=== PATIENT | female | born 1985 | race Caucasian/White ===

== ENCOUNTER 2017-08-28 15:26 | Emergency (ER) | payer SELFPAY ==
[~2017-08-28] VITALS: Ht 160 cm; Wt 66.8 kg
[2017-08-28] MEDS ORDERED: CLEOCIN150 MG PO (16:07)
[2017-08-28 16:15] VITALS: BP 136/72
== END 2017-08-28 16:15 | disposition home or self-care (01) | DRG 603 ==
LOC: ED 15:26
DX: L03.115 Cellulitis of right lower limb (principal); L03.116 Cellulitis of left lower limb; F17.210 Nicotine dependence, cigarettes, uncomplicated; F41.9 Anxiety disorder, unspecified

== ENCOUNTER 2017-08-29 02:25 | Emergency (ER) | payer SELFPAY ==
[~2017-08-29] VITALS: Ht 160 cm; Wt 67.0 kg
[~2017-08-29 02:25] MED LIST: CLEOCIN150 MG PO
[2017-08-29 03:18] VITALS: BP 116/60
== END 2017-08-29 03:35 | disposition home or self-care (01) | DRG 605 ==
LOC: ED 02:25
DX: S70.02XA Contusion of left hip, initial encounter (principal); L03.116 Cellulitis of left lower limb; S70.01XA Contusion of right hip, initial encounter; S90.02XA Contusion of left ankle, initial encounter; S90.01XA Contusion of right ankle, initial encounter; S50.812A Abrasion of left forearm, initial encounter; V09.20XA Pedestrian injured in traffic accident involving unspecified motor vehicles, initial encounter; Y92.414 Local residential or business street as the place of occurrence of the external cause; Y93.01 Activity, walking, marching and hiking

== ENCOUNTER 2017-09-21 09:35 | Observation (INO) | payer SELFPAY ==
[~2017-09-21] VITALS: Ht 160 cm; Wt 61.0 kg
[2017-09-21] VITALS (7 sets, daily range): BP systolic 96–115; BP diastolic 53–76
[2017-09-21 10:42] LABS: HEMOGLOBIN 11.8 g/dl (12.0-16.0); IMMATURE GRANULOCYTES 1.2 % (0.0-1.0); MEAN CELL VOLUME 95.5 fL CALC (80.0-100.0); MEAN CORPUSCULAR HGB 33.1 pG CALC (26.0-32.0); MEAN CORPUSCULAR HGB CONC 34.6 g/L CALC (32.0-36.0); NEUT# 14.35 thou/uL (2.00-7.15); RED BLOOD COUNT 3.57 mill/uL (4.20-5.60); RED CELL DISTRI WIDTH 11.9 % (11.5-15.5)
[2017-09-21 10:44] LABS: HEMATOCRIT 34.1 % (37.0-47.0)
[2017-09-21 10:54] LABS: ALKALINE PHOSPHATASE 75 u/l (38-126); AMYLASE < 30 u/l (30-110); ANION GAP 8 (6-22 (CALC)); BILIRUBIN, TOTAL 0.6 mg/dL (0.0-1.4); BUN 11 mg/dL (7-17); BUN/CREATININE RATIO 20 (12-20 (CALC)); CARBON DIOXIDE 28 mmol/l (22-30); CHLORIDE 103 mmol/l (95-108); CREATININE 0.5 mg/dL (0.5-1.0); GFR > 60 ML/MIN (>=60 (CALC)); GFR FOR AFR.AMER. > 60 ML/MIN (>=60 (CALC)); LIPASE 12 u/l (23-300); SGOT/AST 15 u/l (14-36); SGPT/ALT 29 u/l (9-52); SODIUM 136 mmol/l (137-146)
[2017-09-21 10:55] LABS: ALBUMIN 3.4 g/dL (3.2-5.0); POTASSIUM 3.2 mmol/l (3.5-5.1); TOTAL PROTEIN 6.2 g/dL (6.3-8.2)
[2017-09-22 00:05] VITALS: BP 108/66
[2017-09-22 04:22] VITALS: BP 107/73
[2017-09-22 08:15] VITALS: BP 108/75
[2017-09-22 11:51] LABS: HEMATOCRIT 32.1 % (37.0-47.0); HEMOGLOBIN 11.2 g/dl (12.0-16.0); IMMATURE GRANULOCYTES 0.8 % (0.0-1.0); MEAN CELL VOLUME 95.3 fL CALC (80.0-100.0); MEAN CORPUSCULAR HGB 33.2 pG CALC (26.0-32.0); MEAN CORPUSCULAR HGB CONC 34.9 g/L CALC (32.0-36.0); NEUT# 11.51 thou/uL (2.00-7.15); RED BLOOD COUNT 3.37 mill/uL (4.20-5.60); RED CELL DISTRI WIDTH 12.1 % (11.5-15.5)
[2017-09-22 13:56] LABS: ANION GAP 10 (6-22 (CALC)); BUN 8 mg/dL (7-17); BUN/CREATININE RATIO 14 (12-20 (CALC)); CARBON DIOXIDE 24 mmol/l (22-30); CHLORIDE 107 mmol/l (95-108); CREATININE 0.6 mg/dL (0.5-1.0); GFR > 60 ML/MIN (>=60 (CALC)); GFR FOR AFR.AMER. > 60 ML/MIN (>=60 (CALC)); MAGNESIUM 1.8 mg/dL (1.6-2.3); POTASSIUM 3.7 mmol/l (3.5-5.1); SODIUM 137 mmol/l (137-146)
[2017-09-22 16:12] VITALS: BP 109/74
== END 2017-09-22 17:57 | disposition home or self-care (01) | DRG 750 ==
LOC: ED 09:35 → ED-I 12:06 → ED 13:37 → MS2 13:38
PROVIDERS: Emergency Medicine; Nurse Practitioner Family; ADMIT Internal Medicine; ATTEND Surgery
PROC: 0DTJ4ZZ Resection of Appendix, Percutaneous Endoscopic Approach (ICD-10-PCS; principal; 2017-09-21)
DX: N70.91 Salpingitis, unspecified (principal); K38.8 Other specified diseases of appendix; F41.9 Anxiety disorder, unspecified; F17.210 Nicotine dependence, cigarettes, uncomplicated; E87.6 Hypokalemia; F15.10 Other stimulant abuse, uncomplicated
CPT/HCPCS: J1956; J2710

== ENCOUNTER 2017-10-15 11:24 | Observation (INO) | payer SELFPAY ==
[~2017-10-15] VITALS: Ht 160 cm; Wt 60.0 kg
--- NOTE | 2017-10-15 11:31 | NUR ---
PT ARRIVES VIA EMS FROM HOME FOR C/O SOB. WHEN PT ARRIVES, REPORTS ITCHING TO ENTIRE BODY AND WEIRD FEELING IN HER THROAT. NOTED HIVE LIKE RASH TO ABDOMEN. SPO 87% ON ROOM AIR. DR MOCTEZUMA AT BEDSIDE TO OBTAIN CENTRAL LINE FOR EMERGENT IV ACCESS. PT STATES SHE HAD APPENDECTOMY 2 WEEKS AGO. PT STATES PRIOR TO THE ONSET OF SOB, SHE WAS WALKING BACK TO HER HOUSE AND MAY HAVE BEEN BIT BY SOMETHING IN THE [place].
--- NOTE | 2017-10-15 11:32 | NUR ---
VERBAL ORDERS RECEIVED FROM DR MOCTEZUMA. 0.5 MG EPI, IM GIVEN IN THE NASEEM 50 MG BENEDRYL, IM GIVEN LEFT THIGH 125 MG SOLUMEDROL, IM GIVEN RIGHT THIGH.
--- NOTE | 2017-10-15 11:40 | NUR ---
PT TOLERATED CENTRAL LINE PLACEMENT WELL. PT REPORT ITCHING IS BETTER AT THIS TIME. RED RASH NOTED TO NECK, ABDOMEN, PERINEUM AREA AND UPPER THIGHS AT THIS TIME. O2 TITRATED DOWN TO 2 L, NC BY RT AMADA.
--- NOTE | 2017-10-15 11:47 | NUR ---
BP 81/46. MD NOTIFIED, AWAITING NEW ORDERS.
--- NOTE | 2017-10-15 11:51 | NUR ---
POERTABLE CHEST X RAY COMPLETED. DR MOCTEZUMA AT BEDSIDE AND LOOKED AT XRAY TO COMFORM CENTRAL LINE PLACEMENT. PER DR MOCTEZUMA OK TO START FLUIDS.
--- NOTE | 2017-10-15 12:17 | NUR ---
PT RESTING COMFROTABLY IN STRETCHER WITH EYES CLOSED. PT AWAKENS TO TACTILE STIMULI. IV FLUIDS INFUSING WITH NO DIFFICUILTY. PT DENIES ANY SOB OR ITCHING AT THIS TIME. CALL ZHAO WITHIN REACH. WILL CONTINUE TO MONITOR.
[2017-10-15 12:20] LABS: IMMATURE GRANULOCYTES 0.4 % (0.0-1.0); MEAN CELL VOLUME 95.8 fL CALC (80.0-100.0); MEAN CORPUSCULAR HGB 32.8 pG CALC (26.0-32.0); MEAN CORPUSCULAR HGB CONC 34.3 g/L CALC (32.0-36.0); NEUT# 9.05 thou/uL (2.00-7.15); RED BLOOD COUNT 4.02 mill/uL (4.20-5.60); RED CELL DISTRI WIDTH 12.7 % (11.5-15.5)
[2017-10-15 12:22] LABS: HEMATOCRIT 38.5 % (37.0-47.0); HEMOGLOBIN 13.2 g/dl (12.0-16.0)
[2017-10-15 12:30] LABS: BARBITURATES NEGATIVE (NEGATIVE); COCAINE NEGATIVE (NEGATIVE); METHADONE NEGATIVE (NEGATIVE); TETRAHYDROCANNABIONOL POSITIVE (NEGATIVE); TRICYLIC ANTIDEPRESSANTS NEGATIVE (NEGATIVE)
[2017-10-15 12:31] LABS: OXCYCODONE NEGATIVE (NEGATIVE)
--- NOTE | 2017-10-15 12:45 | NUR ---
HILLARY DOMINGO AT BEDSIDE AND BACKPACK WAS GIVEN.
[2017-10-15 12:46] LABS: ANION GAP 10 (6-22 (CALC)); BUN 12 mg/dL (7-17); BUN/CREATININE RATIO 18 (12-20 (CALC)); CARBON DIOXIDE 26 mmol/l (22-30); CHLORIDE 108 mmol/l (95-108); CREATININE 0.6 mg/dL (0.5-1.0); ETHYL ALCOHOL 0 mg/dl (0-30); GFR > 60 ML/MIN (>=60 (CALC)); GFR FOR AFR.AMER. > 60 ML/MIN (>=60 (CALC)); POTASSIUM 3.2 mmol/l (3.5-5.1); SODIUM 141 mmol/l (137-146)
--- NOTE | 2017-10-15 13:00 | NUR ---
PT AROUSABLE BY TACTILE STIMULI. VSS PT DENIES ANY SOB OR ITCHING AT THIS TIME. RESP EVEN AND UNLABORED. CALL ZHAO WITHIN REACH.
--- NOTE | 2017-10-15 13:30 | NUR ---
DR ALFRED AT BEDSIDE.
--- NOTE | 2017-10-15 14:00 | NUR ---
ABRASIONS TO THE RIGHT KNEE AND RIGHT UPPER ARM NOTED. PT CRIES OUT IN PAIN AND REFUSES TO HAVE ANYONE TOUCH OR CLEAN IT. PT HAS NO HIVES NOTED TO BODY AT THIS TIME.
--- NOTE | 2017-10-15 14:08 | NUR ---
CALL PLACED TO MS. NURSE WILL CALL BACK FOR REPORT.
--- NOTE | 2017-10-15 14:45 | NUR ---
PT AWAKENS TO TACTILE STIMULI AND IS AWARE OF PENDING ADMISSION. PT RESTING COMFORTABLY IN STRETCHER RESP EVEN AND UNLABORED. PT DENIES ANY SOB, ITCHING OR PAIN AT THIS TIME.
--- NOTE | 2017-10-15 15:14 | NUR ---
REPORT CALLED TO ZHANNA FARIAS.
--- NOTE | 2017-10-15 15:44 | NUR ---
Admission Note Report Given to: MARCI Transported by: Wheelchair X Stretcher Transported with: X Nurse Transporter X Patent IV X O2 X Hosiery Bagger PT TO ROOM 290 ON TELE MONITOR IN STABLE CONDITION.
[2017-10-15 15:50] VITALS: BP 110/78
--- NOTE | 2017-10-15 16:05 | NUR ---
REPORT RECEOVED ESAU CHOI IN ED, PT ARRIVED ON UNIT @ 1550, TOO SLEEPY/LETHARGIC FOR ANY VERBAL COMMUNICATION, TREANFERRED FROM STRETCHER TO BED WITH MAX ASSIST OF 3 STAFF MEMBERS. BARELY ABLE TO STATE NAME. O2 @ 2L VIA NC PLACED, IVF 0.45 NS & 40K INFUSING @ 100ML TO MIDLINE IN RIGHT IJ, TELE MONITOR IN PLACE, TEDS PLACED, PT DID NOT RESPOND TO ANY OF THESE PROCEDURES WHEN DONE, SHE ID IN A DEEP SLEEP NOW AND WILL NOT STAY AWAKE FOR ASSESSMENT, WILL CONTINUE TO MONITOR, CALL ZHAO IN REACH.
--- NOTE | 2017-10-15 19:00 | NUR ---
RECEIVED CHANGE OF SHIFT FROM ZHANNA FARIAS. PATIENT ALERT AND LYING BED AND AWOKE SPONTANEOUSLY. PT LERTHARGIC AND VERBALIZED SHE'S OKAY. NO APPARENT ACUTE DISTRESS NOTED. WILL CONTIUE TO MONITOR.
[2017-10-15 19:30] VITALS: BP 113/80
[2017-10-16 00:19] VITALS: BP 106/67
[2017-10-16 04:00] VITALS: BP 103/74
--- NOTE | 2017-10-16 04:00 | NUR ---
NO APPARENT ACUTE CHANGES NOTED IN PT'S CONDITION.
[2017-10-16 05:38] LABS: HEMATOCRIT 33.8 % (37.0-47.0); HEMOGLOBIN 11.4 g/dl (12.0-16.0); IMMATURE GRANULOCYTES 0.6 % (0.0-1.0); MEAN CELL VOLUME 97.7 fL CALC (80.0-100.0); MEAN CORPUSCULAR HGB 32.9 pG CALC (26.0-32.0); MEAN CORPUSCULAR HGB CONC 33.7 g/L CALC (32.0-36.0); NEUT# 7.37 thou/uL (2.00-7.15); RED BLOOD COUNT 3.46 mill/uL (4.20-5.60); RED CELL DISTRI WIDTH 12.8 % (11.5-15.5)
[2017-10-16 05:54] LABS: ANION GAP 10 (6-22 (CALC)); BUN 10 mg/dL (7-17); BUN/CREATININE RATIO 22 (12-20 (CALC)); CARBON DIOXIDE 24 mmol/l (22-30); CHLORIDE 108 mmol/l (95-108); CREATININE 0.4 mg/dL (0.5-1.0); GFR > 60 ML/MIN (>=60 (CALC)); GFR FOR AFR.AMER. > 60 ML/MIN (>=60 (CALC)); MAGNESIUM 1.9 mg/dL (1.6-2.3); SODIUM 138 mmol/l (137-146)
[2017-10-16 06:06] LABS: POTASSIUM 4.1 mmol/l (3.5-5.1)
--- NOTE | 2017-10-16 07:06 | NUR ---
BEDSIDE REPORT RECIEVED BY RAMÓN. PT IS SLEEPING IN BED WITH NO S/S OF DISTRESS NOTED. CALL LIGHT IN REACH.
[2017-10-16 07:41] VITALS: BP 111/77
--- NOTE | 2017-10-16 08:00 | NUR ---
ASSESSMENT DONE TELE IN PLACE. RESPS EVEN AND UNLABORED. NS 100ML/HR INFUSING WELL. PT IS A&O X3. PT DENIES PAIN AT THIS TIME. SAFETY PRECAUTIONS REINFORCED AND CALL LIGHT IN REACH.
[2017-10-16 11:05] VITALS: BP 101/65
--- NOTE | 2017-10-16 12:00 | NUR ---
PT IS RESTING IN BED WITH NO S/S OF DISTRESS NOTED. PT DENIES NEEDS AT THIS TIME. CALL LIGHT IN REACH.
[2017-10-16] MEDS ORDERED: PREDNISONE20 MG PO (13:19)
--- NOTE | 2017-10-16 16:11 | NUR ---
Discharge instructions given. Patient verbalizes understanding of same. Discharged in stable condition via Wheelchair to Home with staff. All belongings sent with pt.
== END 2017-10-16 16:15 | disposition home or self-care (01) | DRG 918 ==
LOC: ED 11:24 → ED-I 13:29 → ED 13:39 → MS2 13:40
PROVIDERS: Family Medicine; Nurse Practitioner Family; ADMIT Internal Medicine; ATTEND Internal Medicine
PROC: 02HV33Z Insertion of Infusion Device into Superior Vena Cava, Percutaneous Approach (ICD-10-PCS; principal; 2017-10-15)
DX: T43.621A Poisoning by amphetamines, accidental (unintentional), initial encounter (principal); T78.2XXA Anaphylactic shock, unspecified, initial encounter; F41.9 Anxiety disorder, unspecified; F15.10 Other stimulant abuse, uncomplicated; F17.210 Nicotine dependence, cigarettes, uncomplicated; E87.6 Hypokalemia
CPT/HCPCS: G0378